=== PATIENT | female | born 1975 | race Caucasian/White ===

== ENCOUNTER 2018-07-16 09:58 | Day surgery (SDC) | payer OTHER ==
[~2018-07-16] VITALS: Ht 157.5 cm; Wt 53.9 kg
[2018-07-16] MEDS ORDERED: NONE PER PT (10:42)
[2018-07-16] MEDS ORDERED: LACTATED RINGERS 1,000 ML IV SCH ×2 (10:43→12:44)
[2018-07-16 11:09] VITALS: BP 106/67
[2018-07-16] MEDS ORDERED: FENTANYL PF 100 MCG/2ML ONE (11:38)
[2018-07-16] MEDS ORDERED: MIDAZOLAM 1 MG/ML, 2ML ONE (11:38)
[2018-07-16] MEDS ORDERED: OXYTOCIN 10 UNITS/ML, 1ML ONE (11:50)
[2018-07-16] MEDS ORDERED: MISOPROSTOL 200 MCG TABLET ONE (11:50)
[2018-07-16] MEDS ORDERED: SILVER NITRATE STICK TP ONE (11:50)
[2018-07-16] MEDS ORDERED: METHYLERGONOVINE 0.2 MG/ML IM ONE (11:50)
[2018-07-16] MEDS ORDERED: BUPIVACAINE/PF 0.5% ONE (11:50)
[2018-07-16 11:54] LABS: BASOPHILS # (AUTO) 0.03 x10^3/uL (0-0.1); BASOPHILS % (AUTO) 1 % (0-1); EOSINOPHILS # (AUTO) 0.41 x10^3/uL (0-0.4); EOSINOPHILS % (AUTO) 6 % (1-7); LYMPHOCYTES % (AUTO) 30 % (22-44); MD NO; MEAN CORPUSCULAR HEMOGLOBIN 31.6 pg (27.0-34.8); MEAN CORPUSCULAR HGB CONC 33.8 g/dL (32.4-35.8); MEAN CORPUSCULAR VOLUME 93.5 fL (80-100); MEAN PLATELET VOLUME 7.9 fL (7.4-10.4); MONOCYTES % (AUTO) 4 % (2-9); NEUTROPHILS # (AUTO) 3.99 x10^3/uL (1.8-6.8); NEUTROPHILS % (AUTO) 59 % (42-75); PLATELET COUNT 268 x10^3/uL (130-400); RED BLOOD COUNT 4.01 x10^6/uL (3.82-5.3); RED CELL DISTRIBUTION WIDTH 13.7 % (9.6-15.2)
[2018-07-16] MEDS ORDERED: ONDANSETRON 2MG/ML, 2ML IV PRN (12:00)
[2018-07-16] MEDS ORDERED: LABETALOL 5MG/ML, 20ML IV PRN (12:00)
[2018-07-16] MEDS ORDERED: ACETAMINOPHEN 325 MG TABLET PO PRN (12:00)
[2018-07-16] MEDS ORDERED: FENTANYL PF 100 MCG/2ML IV PRN (12:00)
[2018-07-16] MEDS ORDERED: hydrALAzine 20 MG/ML, 1ML IV PRN (12:00)
[2018-07-16] MEDS ORDERED: PROMETHAZINE 25 MG/ML, 1ML IV PRN (12:00)
[2018-07-16] MEDS ORDERED: OXYcodone 5 MG/5 ML ORAL.SOL UDC PO PRN ×2 (12:00→13:00)
[2018-07-16] MEDS ORDERED: MEPERIDINE/PF 25MG/0.5ML IVPush PRN (12:00)
[2018-07-16] MEDS ORDERED: HYDROmorphone 2 MG/ML, 1ML IVPush PRN (12:00)
[2018-07-16] MEDS ORDERED: ACETAMINOPHEN 650 MG/20.3 ML UDC ONE (13:00)
[2018-07-16] MEDS ORDERED: OXYcodone 5 MG/5 ML ORAL.SOL UDC ONE (13:00)
[2018-07-16] MEDS ORDERED: KETOROLAC 30 MG/1 ML IVPush PRN (13:00)
[2018-07-16] MEDS ORDERED: ONDANSETRON 2MG/ML, 2ML IVPush PRN (13:00)
[2018-07-16] MEDS ORDERED: morphine SULFATE 10 MG/ML, 1ML IVPush PRN (13:00)
[2018-07-16] MEDS ORDERED: ONDANSETRON 2MG/ML, 2ML ONE (15:33)
[2018-07-16] MEDS ORDERED: CEFAZOLIN 1,000 MG ONE (15:33)
[2018-07-16] MEDS ORDERED: PROPOFOL 10 MG/ML, 20ML ONE (15:33)
[2018-07-16] MEDS ORDERED: DEXAMETHASONE 4 MG/ML, 1ML ONE (15:33)
[2018-07-16] MEDS ORDERED: IBUPROFEN 600 MG TABLET PO SCH (16:00)
== END 2018-07-16 15:20 | disposition home or self-care (01) ==
LOC: OUT 09:58
PROVIDERS: ATTEND Obstetrics & Gynecology
DX: O03.4 Incomplete spontaneous abortion without complication (principal); Z98.890 Other specified postprocedural states
CPT/HCPCS: 36415; 59812; 85025; 86850; 86900; 88305; J0690; J1100; J2210; J2250; J2405; J2704; J3010; J7120; J3490; J2590